=== PATIENT | male | born 1965 | race Caucasian/White ===

== ENCOUNTER 2018-01-18 22:24 | Inpatient (IN) | payer OTHER ==
[~2018-01-18] VITALS: Ht 182.9 cm; Wt 101.2 kg
--- NOTE | ~2018-01-18 | O ---
[facility] [place] [address] OPERATIVE REPORT Name: BARRETT MULLINS Room #: 210-P [facility] IN M.R.#: [id number] Admission: 01/19/18 Attend Phys: Douglas Ugalde MD Discharge: 01/21/18 Date of : 61 Report #: [id number] THIS REPORT FOR: //name// CC: Guru Ugalde DATE OF SERVICE: 01/20/2018 PREOPERATIVE DIAGNOSIS: Right ureteral stone. POSTOPERATIVE DIAGNOSIS: Right ureteral stone. PROCEDURES: Cystoscopy, right ureteroscopy with holmium laser ablation of right ureteral stone with retrieval of stone fragments and placement of indwelling right nephroureteral stent. SURGEON: Guillermo Iverson MD ANESTHESIA: General. INDICATIONS: The patient is a very pleasant 52-year-old gentleman with persistently symptomatic right distal ureteral stone. He has been counseled with respect to treatment options. His creatinine is rising and he has had persistent pain. He has opted for endoscopic manipulation understanding that risk of sepsis, bleeding as well as complications resulting in open surgery either immediately or delayed. He understands risk of nephrectomy. He understands risks of anesthesia including heart attack, stroke and and pulmonary embolism. He also understands I cannot predict all potential complications and side effects. Issues related to stent placement and stent removal have been discussed. SURGICAL PROCEDURE: After obtaining informed consent, he was brought to the operating room, general anesthetic was administered. He was prepped and draped in lithotomy position by the operating personnel under anesthesia supervision. A timeout was performed. IV antibiotics have been administered. Preliminary fluoroscopic images did not show any obvious stones, although the CT demonstrated a right distal ureteral stone with right hydronephrosis, and he was persistently symptomatic. The 21-Cypriot ACMI cystoscope was introduced under direct vision. The anterior urethra was normal. The prostatic urethra demonstrated mild trilobar enlargement with mild elevation of the bladder neck. The trigone and ureters were normal in configuration and location. There were no intrinsic mucosal lesions within the bladder. There was some edema right at the right ureteral orifice. I could see the stone just through the right ureteral orifice. The orifice was pinpoint. I did place a wire and I met some initial resistance and the wire went up into the renal pelvis without difficulty and then a lomeli of debris came through the ureteral orifice clearly [facility] [address] [place] [address] OPERATIVE REPORT Name: BARRETT MULLINS Room #: 210-[facility] IN ..#: [id number] Admission: 01/19/18 Attend Phys: Douglas Ugalde MD Discharge: 01/21/18 Date of : 61 Report #: [id number] decompressing this kidney. Because the ureteral orifice was so tiny, I dilated the ureteral orifice to 15-Cypriot at 10 atmospheres using the 4 cm balloon. I introduced a 6.9 Cypriot ureteroscope into the right ureter. The stone was identified. I used the laser fiber. I used the 365 micron holmium laser fiber to break the stone into innumerable fragments. Many of the fragments passed directly into the bladder. At this point, since the stone fragments have been managed, I noted the ureter to be totally intact. I removed the ureteroscope, I backloaded the safety wire through the cystoscope and placed a 6-Cypriot 28 cm contour stent. The proximal curl was overlying the central renal shadow. The distal curl was in the bladder. I drained the bladder and removed the cystoscope. I did perform a digital rectal exam. Prostate was grade 1-2 smooth, symmetrical and benign. <ELECTRONICALLY SIGNED> By: Guillermo Iverson MD 01/24/18 [id number] Guillermo Iverson MD /nt
[~2018-01-18 22:24] MED LIST: ACETAMINOPHEN325 M1 PO; LEVAQUIN 500 M500 M1 PO; ONDANSETRON HCL4 M3 PO; PROMETHAZINE-C120 ML PO; TESSALON PERLE100 MG PO; ZEGERID 40 MG1 EACH PO
[2018-01-18 23:45] LABS: ABSOLUTE NEUTROPHILS 10.6 thou/uL (1.4-8.2); BASOPHILS 0.3 % (0.0-2.0); EOSINOPHILS 0.2 % (0.0-3.0); HEMATOCRIT 45.2 % (42.0-52.0); HEMOGLOBIN 15.6 gm/dL (14.0-18.0); LYMPHOCYTES 10.9 % (24.0-44.0); MCH 29.8 pg (26.0-34.0); MCHC 34.5 g/dL (28.0-37.0); MCV 86.2 fL (80.0-100.0); MONOCYTES 6.8 % (1.0-8.0); PLATELET COUNT 292 thou/uL (150-400); POLYS 81.8 % (36.0-66.0); RBC 5.24 mil/uL (4.50-6.00); RDW 13.3 % (10.5-14.5); WBC 12.9 thou/uL (4.0-11.0)
[2018-01-18 23:56] LABS: CALCIUM 9.3 mg/dL (8.5-10.1); CREATININE 1.5 mg/dL (0.7-1.3); POTASSIUM 3.8 mmol/L (3.5-5.1)
[2018-01-19 00:01] LABS: ALBUMIN 3.9 g/dL (3.4-5.0); TOTAL BILIRUBIN 0.5 mg/dL (<0.1-1.0); TOTAL PROTEIN 7.2 g/dL (6.4-8.2)
[2018-01-19 01:21] LABS: URINE BLOOD 3+ (Negative); URINE CLARITY CLEAR; URINE COLOR YELLOW; URINE GLUCOSE-RANDOM* NEGATIVE (Negative); URINE KETONES 3+ (Negative); URINE LEUKOCYTES-REFLEX NEGATIVE (Negative); URINE NITRITE-REFLEX NEGATIVE (Negative); URINE PROTEIN (DIPSTICK) TRACE (Negative); URINE SPECIFIC GRAVITY >= 1.030 (1.005-1.035); URINE UROBILINOGEN 0.2 E.U./dl (0.2-1.0)
[2018-01-19 01:33] LABS: ICTOTEST (BILI CONFIRMATORY) Negative (Negative); URINE BILIRUBIN NEGATIVE (Negative); URINE REDUCING SUBSTANCE NEGATIVE
[2018-01-19 01:43] LABS: BACTERIA-REFLEX 1-9 Few /HPF (None Seen); CASTS None Seen /LPF (None Seen); CRYSTALS None Seen /LPF (None Seen); MUCUS >6 Heavy strn/LPF (None Seen); SQUAMOUS 0-3 Few /LPF (0-3); URINE RBC >20 Many /HPF (0-2); URINE WBC-REFLEX 6-15 Few /HPF (0-5)
[2018-01-19 03:50] VITALS: BP 132/90
[2018-01-19 04:43] VITALS: BP 140/99
[2018-01-19 08:59] VITALS: BP 116/79
[2018-01-19 11:38] VITALS: BP 121/79
[2018-01-19 16:15] VITALS: BP 103/72
[2018-01-19 19:26] VITALS: BP 104/67
[2018-01-20 04:07] LABS: GLYCOHEMOGLOBIN (HGB A1C) 6.2 % (4.8-5.6)
[2018-01-20 04:10] LABS: ABSOLUTE NEUTROPHILS 5.9 thou/uL (1.4-8.2); BASOPHILS 0.3 % (0.0-2.0); HEMATOCRIT 38.7 % (42.0-52.0); LYMPHOCYTES 13.9 % (24.0-44.0); MCH 29.6 pg (26.0-34.0); MCHC 33.5 g/dL (28.0-37.0); MCV 88.5 fL (80.0-100.0); MONOCYTES 10.4 % (1.0-8.0); POLYS 74.4 % (36.0-66.0); RBC 4.37 mil/uL (4.50-6.00); RDW 13.3 % (10.5-14.5); WBC 7.9 thou/uL (4.0-11.0)
[2018-01-20 04:12] LABS: PLATELET COUNT 188 thou/uL (150-400)
[2018-01-20 04:14] VITALS: BP 106/70
[2018-01-20 04:16] LABS: CALCIUM 7.9 mg/dL (8.5-10.1); CREATININE 1.8 mg/dL (0.7-1.3); MAGNESIUM 1.9 mg/dL (1.8-2.4); POTASSIUM 3.8 mmol/L (3.5-5.1)
[2018-01-20 08:00] VITALS: BP 106/64
[2018-01-20 12:00] VITALS: BP 129/85
[2018-01-20 20:50] VITALS: BP 118/81
[2018-01-20 22:39] VITALS: BP 129/85
[2018-01-20 23:49] VITALS: BP 105/72
[2018-01-21 03:45] VITALS: BP 114/76
[2018-01-21 13:27] VITALS: BP 114/76
== END 2018-01-21 13:48 | disposition home or self-care (01) | DRG 660 ==
LOC: ER 22:24 → EROBS 01-19 02:21 → 2N 01-19 02:21
PROVIDERS: Emergency Medicine; Nurse Practitioner
DX: N13.2 Hydronephrosis with renal and ureteral calculous obstruction (principal); K21.9 Gastro-esophageal reflux disease without esophagitis; N39.0 Urinary tract infection, site not specified; N17.9 Acute kidney failure, unspecified; R73.9 Hyperglycemia, unspecified; Z98.1 Arthrodesis status; Z87.442 Personal history of urinary calculi; Z79.899 Other long term (current) drug therapy
CPT/HCPCS: 10194; 50010; 50101; 50164; 51179; 51620; 51767; 62110; 62900; 70005